=== PATIENT | female | born 1955 | race Caucasian/White ===

== ENCOUNTER → 2018-07-03 11:09 | Outpatient (CLI) | payer OTHER, SELFPAY ==
--- NOTE | 2018-07-03 | DI.MG.S_ITS ---
BILATERAL DIGITAL SCREENING MAMMOGRAM 3D/2D WITH CAD: 07/03/2018 CLINICAL: Routine screening. Family history of breast cancer. Comparison is made to exams dated: 06/22/2017 mammogram, 06/09/2016 mammogram, and 05/31/2016 mammogram - [facility]. The tissue of both breasts is extremely dense, which lowers the sensitivity of mammography. Current study was also evaluated with a Computer Aided Detection (CAD) system. No significant masses, calcifications, or other findings are seen in either breast. There has been no significant interval change. IMPRESSION: NEGATIVE There is no mammographic evidence of malignancy. A 1 year screening mammogram is recommended. This exam was interpreted at Station ID: [id number]. NOTE: For mammograms, a report in lay terms will be sent to the patient. Approximately 15% of breast malignancies will not be visualized mammographically. In the management of a palpable breast mass, a negative mammogram must not discourage biopsy of a clinically suspicious lesion. Electronically Signed By: Michael maynard/cristina:07/03/2018 11:42:25 letter sent: Normal Exam ACR BI-RADS Category 1: Negative 3341F
== END ==
PROVIDERS: Family Provider Physician Assistant; PCP Physician Assistant; Visit Provider Physician Assistant
DX: Z12.31 Encounter for screening mammogram for malignant neoplasm of breast (principal); Z80.3 Family history of malignant neoplasm of breast
CPT/HCPCS: 77063; 77067

== ENCOUNTER → 2018-12-19 14:46 | Outpatient (CLI) | payer OTHER, SELFPAY ==
--- NOTE | 2018-12-19 | DI.MRI.S_ITS ---
PROCEDURE: MR SHOULDER LT WO CON INDICATIONS: INCOMPLETE ROTATOR CUFF TEAR OF LEFT SHOULDER TECHNIQUE: Noncontrast oblique coronal T2 fast spin echo with fat saturation, oblique sagittal T1 spin echo and T2 fast spin echo with fat saturation, axial T1 spin echo and T2 fast spin echo with fat saturation through the shoulder. COMPARISON: None. FINDINGS: Image quality: Excellent. Rotator cuff: Tendinosis and low to moderate grade articular and bursal surface partial-thickness tear involving distal supraspinatus at its insertion the humeral head is seen extending to the musculotendinous junction. There is also distal subscapularis tendinosis and low-grade intrasubstance partial-thickness tear. Sagittal images demonstrate mild supraspinatus muscle atrophy. Bones and bursae: Zyvq-oi-syaimdgc acromioclavicular joint and glenohumeral joint osteoarthritis is seen. No fracture or dislocation.. No pathologic subacromial-subdeltoid or subcoracoid bursal fluid is present. Capsule and soft tissues: In the absence of intra-articular contrast, there is signal abnormality and contour irregularity involving superior anterior labrum at 1 to 2:00 position suggestive of superior anterior labral tear. There is also suggestion of anterior inferior labral tear at 4 to 6:00 position. The glenohumeral ligaments appear intact. The long head of the biceps tendon demonstrates normal location and morphology. The rotator interval appears normal, without fibrosis. The coracohumeral ligament is normal in thickness. IMPRESSION: 1. Suggestion of focal superior anterior labral tear at 1:00 to 2:00 position and anterior inferior labral tear 4 to 6:00 position. 2. Tendinosis and low to moderate grade articular and bursal surface partial-thickness tear involving distal supraspinatus and infraspinatus at their insertions on the greater tuberosity of humeral head extending to musculotendinous junction. Mild supraspinatus muscle atrophy. Distal subscapularis tendinosis. No full-thickness rotator cuff tendon rupture. 3. Mild to moderate acromioclavicular joint and glenohumeral joint osteoarthritis. Dictated by: Padilla Kennedy M.D. on 12/19/2018 at 16:24 Approved by: Padilla Kennedy M.D. on 12/19/2018 at 16:27
== END ==
PROVIDERS: Family Provider Physician Assistant; PCP Physician Assistant; Visit Provider Physician Assistant
DX: M75.112 Incomplete rotator cuff tear or rupture of left shoulder, not specified as traumatic (principal); M19.012 Primary osteoarthritis, left shoulder
CPT/HCPCS: 73221

== ENCOUNTER → 2019-07-09 11:02 | Outpatient (CLI) | payer OTHER, SELFPAY ==
--- NOTE | 2019-07-09 | DI.MG.S_ITS ---
BILATERAL DIGITAL SCREENING MAMMOGRAM 3D/2D WITH CAD: 07/09/2019 CLINICAL: Routine screening. Family history of breast cancer. Comparison is made to exams dated: 07/03/2018 mammogram, 06/22/2017 mammogram, and 05/31/2016 mammogram - [facility]. The tissue of both breasts is extremely dense, which lowers the sensitivity of mammography. Current study was also evaluated with a Computer Aided Detection (CAD) system. No significant masses, calcifications, or other findings are seen in either breast. There has been no significant interval change. IMPRESSION: NEGATIVE There is no mammographic evidence of malignancy. A 1 year screening mammogram is recommended. This exam was interpreted at Station ID: [id number]. NOTE: For mammograms, a report in lay terms will be sent to the patient. Approximately 15% of breast malignancies will not be visualized mammographically. In the management of a palpable breast mass, a negative mammogram must not discourage biopsy of a clinically suspicious lesion. Electronically Signed By: Shira lake/cristina:07/09/2019 12:37:07 letter sent: Normal Exam ACR BI-RADS Category 1: Negative 3341F
== END ==
PROVIDERS: Family Provider Physician Assistant; PCP Physician Assistant; Visit Provider Physician Assistant
DX: Z12.31 Encounter for screening mammogram for malignant neoplasm of breast (principal); Z80.3 Family history of malignant neoplasm of breast
CPT/HCPCS: 77063; 77067

== ENCOUNTER → 2019-08-26 09:09 | Outpatient (CLI) | payer OTHER, SELFPAY ==
--- NOTE | 2019-08-26 | DI.US.S_ITS ---
PROCEDURE: US PELVIC COMPLETE INDICATIONS: DUB TECHNIQUE: Real-time scanning was performed of the pelvic organs, with image documentation. Additional endovaginal scanning was necessary due to incomplete visualization of the adnexal and endometrial structures by transabdominal scanning. COMPARISON: [facility], , PELVIC COMPLETE, 08/20/2009, 12:41. FINDINGS: Transabdominal scanning: Limited scanning through the kidneys shows no hydronephrosis. No pathologic free abdominal or pelvic fluid. Endovaginal scanning: Uterus: Uterus is normal in size at 5.2 x 2.0 x 3.8 cm. The endometrium measures 1.0 mm in combined thickness. Trace endometrial and endocervical fluid. Avascular echogenic focus involving the endocervical canal measuring 3 mm. Nabothian cysts measuring 1.0 cm. Ovaries: Right ovary not visualized. Normal postmenopausal left ovary measuring 1.6 x 1.1 x 0.8 cm. IMPRESSION: 1. Trace endometrial fluid; otherwise the endometrial complex is normal thickness. 2. Trace endocervical fluid and avascular echogenic focus measuring 3 mm which may represent a endocervical polyp; however differential would include other benign and malignant etiologies. Gynecologic consultation is recommended. Dictated by: Yo VALDERRAMA Interpreted: Kayce Sharpe MD on 08/26/2019 at 10:55 Approved by: Kayce Sharpe M.D. on 08/26/2019 at 15:47
== END ==
PROVIDERS: PCP Physician Assistant; Visit Provider Physician Assistant
DX: N93.8 Other specified abnormal uterine and vaginal bleeding (principal); N88.8 Other specified noninflammatory disorders of cervix uteri
CPT/HCPCS: 76830; 76856

== ENCOUNTER → 2019-11-10 11:27 | Outpatient (CLI) | payer OTHER, SELFPAY ==
--- NOTE | 2019-11-10 | DI.RAD.S_ITS ---
PROCEDURE: XR CHEST 2V INDICATIONS: COUGH TECHNIQUE: 2 views of the chest were acquired. COMPARISON: [facility], CHEST 2 VIEW, 10/25/2017, 14:13. [facility], CHEST 1 VIEW, 02/23/2012, 8:45. FINDINGS: Surgical changes and devices: None. Lungs and pleura: Lungs are clear. No pleural effusions or pneumothorax. Mediastinum: Mediastinal contours are normal. Heart size is normal. Bones and chest wall: No suspicious bony abnormalities. Soft tissues appear unremarkable. IMPRESSION: Normal for age, source of current cough symptoms is not seen. Dictated by: Noé Whittington M.D. on 11/10/2019 at 13:09 Approved by: Noé Whittington M.D. on 11/10/2019 at 13:09
== END ==
PROVIDERS: PCP Physician Assistant; Referring Provider Internal Medicine; Visit Provider Internal Medicine
DX: R05 Cough (principal)
CPT/HCPCS: 71046

== ENCOUNTER → 2020-07-13 10:43 | Outpatient (CLI) | payer MEDICARE, SELFPAY ==
--- NOTE | 2020-07-13 | DI.MG.S_ITS ---
BILATERAL DIGITAL SCREENING MAMMOGRAM 3D/2D WITH CAD: 07/13/2020 CLINICAL: Routine screening. Family history of breast cancer. Comparison is made to exams dated: 07/09/2019 mammogram, 07/03/2018 mammogram, 06/22/2017 mammogram, 05/22/2014 mammogram, 05/26/2015 mammogram, and 05/31/2016 mammogram - [facility]. The tissue of both breasts is extremely dense, which lowers the sensitivity of mammography. Current study was also evaluated with a Computer Aided Detection (CAD) system. There are benign calcifications in both breasts. No significant masses, calcifications, or other findings are seen in either breast. There has been no significant interval change. IMPRESSION: BENIGN There is no mammographic evidence of malignancy. A 1 year screening mammogram is recommended. This exam was interpreted at Station ID: [id number]. NOTE: For mammograms, a report in lay terms will be sent to the patient. Approximately 15% of breast malignancies will not be visualized mammographically. In the management of a palpable breast mass, a negative mammogram must not discourage biopsy of a clinically suspicious lesion. Electronically Signed By: Lius montero/cristina:07/13/2020 12:24:06 letter sent: Normal Exam ACR BI-RADS Category 2: Benign Finding(s) 3342F
== END ==
PROVIDERS: PCP Physician Assistant; Referring Provider Physician Assistant; Visit Provider Physician Assistant
DX: Z12.31 Encounter for screening mammogram for malignant neoplasm of breast (principal); Z80.3 Family history of malignant neoplasm of breast
CPT/HCPCS: 77063; 77067

== ENCOUNTER → 2021-07-20 10:58 | Outpatient (CLI) | payer MEDICARE, OTHER, SELFPAY ==
--- NOTE | 2021-07-20 11:03 | DI.MG.S_ITS ---
BILATERAL DIGITAL SCREENING MAMMOGRAM 3D/2D WITH CAD: 07/20/2021 CLINICAL: Routine screening. Family history of breast cancer. Comparison is made to exams dated: 07/13/2020 mammogram, 07/09/2019 mammogram, and 07/03/2018 mammogram - [facility]. The tissue of both breasts is extremely dense, which lowers the sensitivity of mammography. Current study was also evaluated with a Computer Aided Detection (CAD) system. There are benign calcifications in both breasts. No significant masses, calcifications, or other findings are seen in either breast. There has been no significant interval change. IMPRESSION: BENIGN There is no mammographic evidence of malignancy. A 1 year screening mammogram is recommended. This exam was interpreted at Station ID: [id number]. NOTE: For mammograms, a report in lay terms will be sent to the patient. Approximately 15% of breast malignancies will not be visualized mammographically. In the management of a palpable breast mass, a negative mammogram must not discourage biopsy of a clinically suspicious lesion. Electronically Signed By: Michael maynard/cristina:07/20/2021 14:19:43 letter sent: Normal Exam ACR BI-RADS Category 2: Benign Finding(s) 3342F
== END ==
PROVIDERS: PCP Physician Assistant; Referring Provider Physician Assistant; Visit Provider Physician Assistant
DX: Z12.31 Encounter for screening mammogram for malignant neoplasm of breast (principal); Z80.3 Family history of malignant neoplasm of breast
CPT/HCPCS: 77063; 77067

== ENCOUNTER → 2021-08-03 16:38 | Outpatient (CLI) | payer MEDICARE, OTHER, SELFPAY ==
--- NOTE | 2021-08-03 | DI.MRI.S_ITS ---
PROCEDURE: MR HEAD/BRAIN WO/W CON INDICATIONS: new daily persistant headache TECHNIQUE: Noncontrast axial T1 spin echo, axial T2 fast spin echo, sagittal and axial FLAIR, coronal T2 fast spin echo, axial gradient echo, axial diffusion and ADC through the brain. After the administration of contrast, axial and coronal T1 spin echo with fat saturation through the brain. COMPARISON: None. FINDINGS: Image quality: Excellent. CSF spaces: Basal cisterns are patent. No extra-axial fluid collections. Ventricles are normal in size and shape. Brain: No midline shift. No intracranial bleeds or masses. No abnormal intracranial enhancement. There is cerebral volume loss for age. There is periventricular white matter chronic small vessel ischemic change. The brainstem appears normal. Diffusion-weighted images demonstrate no acute ischemic insults. No chronic ischemic insults. Normal intravascular flow voids are present. Skull and face: Calvarial marrow is normal in signal. Orbits appear normal. Sinuses: Sinuses and mastoids appear clear. IMPRESSION: Unremarkable intracranial study, without an imaging explanation found for the patient's presenting history of headache. No masses or abnormal enhancement can be seen. Note is made of age-appropriate brain parenchymal volume loss and chronic small vessel ischemic changes. No findings of acute or subacute infarction can be seen. Dictated by: Arnold Pillai M.D. on 08/03/2021 at 17:34 Approved by: Arnold Pillai M.D. on 08/03/2021 at 17:35
== END ==
PROVIDERS: PCP Physician Assistant; Referring Provider Student in an Organized Health Care Education/Training Program; Visit Provider Student in an Organized Health Care Education/Training Program
DX: G44.52 New daily persistent headache (NDPH) (principal)
CPT/HCPCS: 70553; A9579

== ENCOUNTER → 2022-03-23 08:21 | Outpatient (CLI) | payer MEDICARE, OTHER, SELFPAY ==
--- NOTE | 2022-03-23 | DI.RAD.S_ITS ---
PROCEDURE: XR LUMBAR SPINE 2-3V INDICATIONS: Low back pain, unspecified, Chronic TECHNIQUE: 3 views of the lumbar spine were acquired. COMPARISON: [facility], , L-SPINE 2-3 VIEWS, 08/27/2007, 14:02. FINDINGS: Bones: 5 iti-ojk-bzsdlst vertebrae are present. There is normal bony alignment. No vertebral body compression fractures. No suspicious bony lesions. Soft tissues: Overlying bowel gas pattern is normal. No suspicious soft tissue calcifications. IMPRESSION: No radiographic abnormalities. Dictated by: Shira Felipe M.D. on 03/23/2022 at 9:51 Approved by: Shira Felipe M.D. on 03/23/2022 at 9:53
== END ==
PROVIDERS: PCP Physician Assistant; Referring Provider Physician Assistant; Visit Provider Physician Assistant
DX: M54.50 Low back pain, unspecified (principal); G89.29 Other chronic pain
CPT/HCPCS: 72100

== ENCOUNTER → 2022-04-28 10:41 | Outpatient (CLI) | payer MEDICARE, OTHER, SELFPAY | PROVIDERS: PCP Physician Assistant; Referring Provider Physician Assistant; Visit Provider Physician Assistant | DX: Z13.820 Encounter for screening for osteoporosis (principal); Z78.0 Asymptomatic menopausal state; M81.0 Age-related osteoporosis without current pathological fracture | CPT/HCPCS: 77080 ==

== ENCOUNTER → 2022-06-22 09:41 | Outpatient (CLI) | payer MEDICARE, OTHER, SELFPAY ==
[2022-06-22 11:43] LABS: COVID19 -Nasal RAPID Negative (Negative)
== END ==
PROVIDERS: PCP Physician Assistant; Visit Provider Surgery
DX: Z20.822 Contact with and (suspected) exposure to COVID-19 (principal); Z01.812 Encounter for preprocedural laboratory examination
CPT/HCPCS: 87635; C9803

== ENCOUNTER 2022-06-23 10:40 | Day surgery (SDC) | payer MEDICARE, OTHER, SELFPAY ==
[2022-06-23] VITALS (7 sets, daily range): BP systolic 100–158; BP diastolic 54–93; PULSE 54–99; RESP 12–22; TEMP 35.8–36.8; O2SAT 98–100; BMI 43.1
--- NOTE | 2022-06-23 | PATH_ITS ---
[facility] Accession Number: [id number] . 01 Material submitted: . rectum - RECTAL POLYP . 01 Diagnosis: Rectal Polyp, Biopsy: Hyperplastic polyp. [facility] 06/28/2022 1027 Local . 01 Electronically signed: . Timo Perry MD, PhD, Pathologist NPI- [id number] . 01 Gross description: . RECTAL POLYP: Received in formalin is 1 fragment(s) of barnes, soft tissue measuring 0.9 x 0.6 x 0.2 cm submitted entirely in 1 cassette(s) /[facility] 06/26/2022 2239 Local . 01 Pathologist provided ICD-10: K62.1 . 01 CPT . 504233 Specimen Comment: A courtesy copy of this report has been sent to [facility] Pathology Performed at: 01 [facility] [address] [place] [address] [id number] MD Michael Olguin MD Phone: [phone]
[2022-06-23] MEDS: LACTATED RINGERS 1,000 ML 42 ML IV (11:05)
--- NOTE | 2022-06-23 11:29 | PM.HP.1 ---
History of Present Illness History of Present Illness Date Patient Seen: 06/23/22 Chief complaint: COLONOSCOPY Narrative: Ms. Morales presents for screening colonoscopy. Had a previous colonoscopy about 5 years ago she believes that she had some polyps with that. She denies any symptoms of bleeding or changes in bowel habits. She has no family history of colon cancer. She is allergic to penicillin and clindamycin these cause her neck to swell. She has hemorrhoids. But is otherwise healthy her bowel prep today went well. Patient History Family & Social History Social History: household members none Tobacco & Substance use: Smoking Status Never smoker alcohol intake current alcohol intake frequency a few times a week Substance Use Type does not use Meds Home Medications and Allergies Home Medications Medication Instructions Recorded Confirmed Type No Known Home Medications 06/23/22 06/23/22 History Allergies Allergy/AdvReac Type Severity Reaction Status Date / Time beclomethasone [From QVAR] Allergy Intermediate HEARTRATE Verified 06/23/22 10:50 INCREASED clindamycin [CLINDAMYCIN] Allergy Mild THROAT Verified 06/23/22 10:50 SWELLED Penicillins [PENICILLINS] Allergy Unknown Verified 06/23/22 10:50 Exam Vital Signs (past 8 hours): - 06/23/22 10:55 Temperature 98.3 F Pulse Rate 99 H Respiratory Rate 22 Blood Pressure 158/93 H Pulse Oximetry 98 Oxygen Delivery Method Room Air Oxygen Flow Rate 0 Oxygen Delivery Method Room Air Oxygen Flow Rate 0 Const General: cooperative, healthy appearing and comfortable Nutritional Appearance: thin HENMT Head: normal to inspection Neck Neck: normal visual inspection Resp Effort & Inspection: normal respiratory effort and able to speak in complete sentences Cardio Rate: regular rate GI Inspection: normal to inspection Extrem General: normal to inspection Assessment & Plan Assessment and plan (1) Encounter for screening colonoscopy: Status: Acute Plan I discussed risks benefits and alternatives to screening colonoscopy including but not limited to risks from conscious sedation as well as perforation and damage to the colon requiring hospitalization or further surgery in rare cases. She understand the risks and benefits and wishes to proceed. Time Spent With Patient Critical Care time: I spent a total of [] minutes of critical care time on this patient's care today; this time is exclusive of procedural time.
[2022-06-23] MEDS: fentaNYL 100 MCG/2 ML INJ 200 MCG IV (13:32)
[2022-06-23] MEDS: MIDAZOLAM 5 MG/5 ML VIAL 8 MG IV (13:32)
--- NOTE | 2022-06-23 13:56 | PM.OP.COLON ---
Operative Date/Time/Diagnoses Date of procedure: 06/23/22 Pre-op diagnosis: Colon cancer screening Post-op diagnosis: same Procedure & Clinicians Study performed: Colonoscopy Same procedure as scheduled: Yes Indications: Screening Surgeon: Seda Goldberg Procedure Notes Procedure in detail: Patient was taken to the endoscopy suite and placed in a left lateral decubitus position a time-out was performed. Conscious sedation was induced. Patient received a total of 8 mg of Versed and 200 mcg of fentanyl. Digital rectal exam was performed. External hemorrhoids were seen. The colonoscope was then introduced into the anal canal and advanced. The colonoscope was eventually advanced to the cecum and a photograph was taken of the appendiceal orifice. I also saw the ileocecal valve well. However this was a difficult colonoscopy with a lot of very tight turns. The patient was somewhat uncomfortable during the turns. This discomfort was alleviated medication overall the patient did well and went in good condition to the postoperative care unit. As we were withdrawing the saw a small less 1 cm rectal polyp which was snared and suctioned and sent for pathology. Scope withdrawal time: 20 minutes Sedation minutes: 56 Findings: divertiulosis, internal hemorrhoids and polyp(s) Post-procedure Plan for aftercare: Follow-up colonoscopy in 5-10 years depending on pathology.
== END 2022-06-23 23:00 | disposition home or self-care (01) ==
PROVIDERS: PCP Physician Assistant; Referring Provider Surgery; Visit Provider Surgery
PROC: 0DJD8ZZ Inspection of Lower Intestinal Tract, Via Natural or Artificial Opening Endoscopic (ICD-10-PCS; CPT 45378; principal; 2022-06-23 11:45)
DX: Z12.11 Encounter for screening for malignant neoplasm of colon (principal); K64.8 Other hemorrhoids; K57.30 Diverticulosis of large intestine without perforation or abscess without bleeding; K62.1 Rectal polyp
CPT/HCPCS: 45385; 99152; 99153; J2250; J3010

== ENCOUNTER → 2022-07-25 07:59 | Outpatient (CLI) | payer MEDICARE, OTHER, SELFPAY ==
--- NOTE | 2022-07-25 | DI.MG.S_ITS ---
BILATERAL DIGITAL SCREENING MAMMOGRAM 3D/2D WITH CAD: 07/25/2022 CLINICAL: Routine screening. Family history of breast cancer. Comparison is made to exams dated: 07/20/2021 mammogram, 07/13/2020 mammogram, and 07/09/2019 mammogram - [facility]. Both breasts are extremely dense, which lowers the sensitivity of mammography (category d />75% glandular tissue). Current study was also evaluated with a Computer Aided Detection (CAD) system. There are benign calcifications in both breasts. No significant masses, calcifications, or other findings are seen in either breast. There has been no significant interval change. IMPRESSION: BENIGN There is no mammographic evidence of malignancy. A 1 year screening mammogram is recommended. Based on Tyrer-Cuzick model (a risk assessment model), the patient's lifetime risk is 27.4% and her 10 year risk is 15.3%. If a patient has an elevated risk, a more comprehensive evaluation should be considered and/or a referral to a genetic counselor. The [employer], [employer], and NCCN Guidelines advise the consideration of Breast MRI as an adjunct to screening mammography in patients whose Lifetime risk to develop breast cancer is 20% or higher. This exam was interpreted at Station ID: [id number]. NOTE: For mammograms, a report in lay terms will be sent to the patient. Approximately 15% of breast malignancies will not be visualized mammographically. In the management of a palpable breast mass, a negative mammogram must not discourage biopsy of a clinically suspicious lesion. Electronically Signed By: Fahad ford/cristina:07/25/2022 13:01:19 letter sent: Normal Exam ACR BI-RADS Category 2: Benign Finding(s) 3342F
== END ==
PROVIDERS: PCP Physician Assistant; Referring Provider Physician Assistant; Visit Provider Physician Assistant
DX: Z12.31 Encounter for screening mammogram for malignant neoplasm of breast (principal); Z80.3 Family history of malignant neoplasm of breast
CPT/HCPCS: 77063; 77067

== ENCOUNTER → 2022-08-18 09:19 | Outpatient (CLI) | payer MEDICARE, OTHER, SELFPAY ==
--- NOTE | 2022-08-18 | DI.NM.S_ITS ---
PROCEDURE: NM GARY PERF SPECT REST & STR Rest and exercise myocardial perfusion SPECT with gated imaging and ejection fraction RADIOPHARMACEUTICAL: 12.3 mCi Tc-99m sestamibi IV at rest and 26.0 mCi Tc-99m sestamibi IV at peak exercise. A 1-hzy-ugqwtjbz was performed. INDICATIONS: Shortness of breath Dizziness and giddiness TECHNIQUE: Radiopharmaceutical was injected at peak stress test, and also at rest. SPECT images were obtained. SPECT myocardial perfusion images were displayed in short axis, horizontal long axis, and vertical long axis views. Gated images were reviewed using [employer] software. COMPARISON: None. CARDIAC STRESS: A standard Manior treadmill exercise tolerance test was performed by the patient under the supervision of an attending staff. The patient exercised for 4 minutes and 31 seconds; 7.0 METS; functional aerobic impairment (SANCHEZ) is +25% %. Hemodynamic data: There is normal blood pressure and heart rate response to exercise stress. Patient achieved 99% of maximum predicted heart rate at peak exercise. Peak blood pressure 167/78. Symptoms: Patient denied chest pain during exercise. EKG: Rest ECG sinus rhythm. Stress ECG sinus tachycardia, no diagnostic EKG changes of ischemia, frequent PVCs, 1 episode of 6 beat NSVT. FINDINGS: Raw data: There is good myocardial labeling by radiotracer. No significant motion artifacts. Fmud-hu-hgzoi ratio is 0.21 (normal is less than 0.38 for sestamibi tracer, and less than 0.50 for thallium tracer). Left ventricle function: Gated images demonstrate normal left ventricle wall thickening. No segmental wall motion abnormality. No transient ischemic dilation; TID is 0.94 (normal less than 1.3). The left ventricle resting end-diastolic volume is 78 mL. Left ventricle stress ejection fraction is >75%; normal values are above 45%. Myocardial perfusion: There is normal distribution of activity in the left and right ventricular myocardium. No fixed or reversible perfusion defects. IMPRESSION: Low risk perfusion study. No evidence of exercise-induced ischemia or scar on SPECT imaging. Stress ECG did not show changes diagnostic of ischemia however there were frequent PVCs and 1 episode NSVT noted. Normal hemodynamic response to exercise. Reduced exercise capacity. Dictated by: Sherry Kearns D.O. on 08/18/2022 at 16:57 Approved by: Sherry Kearns D.O. on 08/18/2022 at 17:01
[2022-08-18 09:57] LABS: COVID19 -Nasal RAPID Negative (Negative)
== END ==
PROVIDERS: PCP Physician Assistant; Referring Provider Physician Assistant; Visit Provider Physician Assistant
DX: R42 Dizziness and giddiness (principal); R11.0 Nausea; R06.02 Shortness of breath; Z20.822 Contact with and (suspected) exposure to COVID-19
CPT/HCPCS: 78452; 87635; 93017; A9502

== ENCOUNTER → 2022-10-04 07:59 | Outpatient (CLI) | payer MEDICARE, OTHER, SELFPAY ==
--- NOTE | 2022-10-04 | DI.ECHO.S_ITS ---
[facility]---------[facility] +---------+ : : [address] : : : : [id number] : : : : Phone: [phone] Echocardiogram Report + + :Name: DANIELLE JANSEN Study Date: 10/04/2022 Height: 67.5 in: :[facility] ReadingLocation: Weight: 128 lb : : Gender: Female BSA: 1.7 m2 : :: 1955 Age: 67 yrs BP: 123/75 mmHg: :Reason For Study: VENTRICULAR PREMATURE DEPOLARIZATION : :Ordering Physician: BENNY, : :JDUY Performed By: Rani Preston : :Referring: JUDY ZAPATA : + + Interpretation Summary Normal sinus rhythm. Normal LV size, wall thickness, wall motion and LV systolic function. EF is 55-60%. Normal chamber sizes. No valvular abnormalities. No prior study available for comparison. Procedure: A two-dimensional transthoracic echocardiogram with color flow and Doppler was performed. The study quality was technically adequate. There is no prior echocardiogram noted for this patient. The patient was in sinus rhythm with heart rates between 68-81 bpm during the exam. Left Ventricle: The left ventricle is normal in size and wall thickness. The ejection fraction is estimated to be 55-60%. Right Ventricle: The right ventricle is normal in size and function. Atria: The left atrial size is normal. Right atrial size is normal. There is no Doppler evidence for an interatrial shunt. Mitral Valve: The mitral valve is normal in structure and function. There is mild mitral regurgitation. Aortic Valve: The aortic valve is trileaflet. The aortic valve opens well. There is no aortic valve stenosis. No aortic regurgitation is present. Tricuspid Valve: The tricuspid valve is normal in structure and function. There is mild tricuspid regurgitation. Pulmonic Valve: The pulmonic valve leaflets are thin and pliable; valve motion is normal. There is no pulmonic valvular regurgitation. Great Vessels: The aortic root is normal size. The ascending aorta could not be visualized. The IVC is of normal diameter and collapses greater than 50% with a sniff. This suggests a low right atrial pressure of 3 mm Hg. Pericardium/ Pleura There is no pericardial effusion. There is no pleural effusion. MMode/2D Measurements & Calculations LVIDd: 4.3 cm LVOT diam: 1.9 cm LVIDs: 2.9 cm Ao root diam: 2.9 cm FS: 32.9 % Ao Arch Diam (Prox Trans): 2.5 cm IVSd: 0.69 cm LVPWd: 0.71 cm LV hager. diameter/BSA (cm/m^2): 2.6 LV sys. diameter/BSA (cm/m^2): 1.7 LA A2 area: 17.6 cm2 RA long axis: 4.4 cm LA A4 area: 14.8 cm2 RA area: 12.4 cm2 LA length (vol): 4.3 cm RA vol: 29.7 ml LA vol: 52.0 ml RA : 17.6 ml/m2 LA vol index: 30.9 ml/m2 IVC diam: 1.2 cm RVD1 (basal): 3.1 cm RVD2 (mid): 2.9 cm TAPSE: 2.3 cm Doppler Measurements & Calculations Ao V2 max: 132.6 cm/sec LVOT Max Alphonso: 113.5 cm/sec Ao V2 mean: 91.0 cm/sec LV V1 max P.2 mmHg Ao max P.0 mmHg LV V1 VTI: 23.5 cm Ao mean P.7 mmHg ZEHRA(I,D): 2.6 cm2 Ao V2 VTI: 25.6 cm ZEHRA(V,D): 2.4 cm2 sev ratio: 0.92 ZEHRA indexed to BSA (cm^2/m^2): 1.5 MV E max alphonso: 74.2 cm/sec PA V2 max: 78.7 cm/sec MV A max alphonso: 71.5 cm/sec PA V2 mean: 58.6 cm/sec MV E/A: 1.0 PA mean P.5 mmHg Med Peak E' Alphonso: 8.7 cm/sec PA pr(Accel): 17.3 mmHg E/E' med: 8.5 Lat Peak E' Alphonso: 10.2 cm/sec E/E' lat: 7.3 E/e' average: 7.9 MV dec time: 0.17 sec SV(LVOT): 65.4 ml Electronically signed by: Lynda Jones M.D. on Reading Physician:10/04/2022 11:11 PM
== END ==
PROVIDERS: PCP Physician Assistant; Referring Provider Physician Assistant; Visit Provider Physician Assistant
DX: I49.3 Ventricular premature depolarization (principal); R42 Dizziness and giddiness; R06.02 Shortness of breath; I08.1 Rheumatic disorders of both mitral and tricuspid valves
CPT/HCPCS: 93306

== ENCOUNTER → 2023-07-26 17:11 | Outpatient (CLI) | payer MEDICARE, OTHER, SELFPAY ==
--- NOTE | 2023-07-26 | DI.MG.S_ITS ---
BILATERAL DIGITAL SCREENING MAMMOGRAM 3D/2D WITH CAD: 07/26/2023 CLINICAL: Routine screening. Family history of breast cancer. Comparison is made to exams dated: 07/25/2022 mammogram, 07/20/2021 mammogram, and 07/13/2020 mammogram - [facility]. Both breasts are extremely dense, which lowers the sensitivity of mammography (category d />75% glandular tissue). Current study was also evaluated with a Computer Aided Detection (CAD) system. There are benign calcifications in both breasts. No significant masses, calcifications, or other findings are seen in either breast. There has been no significant interval change. IMPRESSION: BENIGN There is no mammographic evidence of malignancy. A 1 year screening mammogram is recommended. Consider supplemental MRI screening. Based on Tyrer-Cuzick model (a risk assessment model), the patient's lifetime risk is 26.2% and her 10 year risk is 15.2%. If a patient has an elevated risk, a more comprehensive evaluation should be considered and/or a referral to a genetic counselor. The [place] [employer], [employer], and NCCN Guidelines advise the consideration of Breast MRI as an adjunct to screening mammography in patients whose Lifetime risk to develop breast cancer is 20% or higher. This exam was interpreted at Station ID: [id number]. NOTE: For mammograms, a report in lay terms will be sent to the patient. Approximately 15% of breast malignancies will not be visualized mammographically. In the management of a palpable breast mass, a negative mammogram must not discourage biopsy of a clinically suspicious lesion. Electronically Signed By: Fritz Jasso M.D. lc/:07/27/2023 08:22:05 letter sent: Normal Exam ACR BI-RADS Category 2: Benign Finding(s) 3342F
== END ==
PROVIDERS: PCP Physician Assistant; Referring Provider Physician Assistant; Visit Provider Physician Assistant
DX: Z12.31 Encounter for screening mammogram for malignant neoplasm of breast (principal); Z80.3 Family history of malignant neoplasm of breast
CPT/HCPCS: 77063; 77067

== ENCOUNTER → 2023-10-16 10:39 | Outpatient (CLI) | payer MEDICARE, OTHER, SELFPAY ==
--- NOTE | 2023-10-16 10:41 | DI.RAD.S_ITS ---
PROCEDURE: XR CHEST 2V INDICATIONS: COUGH TECHNIQUE: 2 views of the chest were acquired. COMPARISON: [facility], , XR CHEST 2V, 11/10/2019, 11:56. [facility], , CHEST 2 VIEW, 10/25/2017, 14:13. FINDINGS: Surgical changes and devices: None. Lungs and pleura: Lungs are clear. No pleural effusions or pneumothorax. Mediastinum: Mediastinal contours are normal. Heart size is normal. Bones and chest wall: No suspicious bony abnormalities. Soft tissues appear unremarkable. IMPRESSION: No acute cardiopulmonary abnormality. Dictated by: Bayron Artis M.D. on 10/16/2023 at 13:18 Approved by: Bayron Artis M.D. on 10/16/2023 at 13:19
== END ==
LOC: RAD 10:40
PROVIDERS: PCP Physician Assistant; Referring Provider Physician Assistant; Visit Provider Physician Assistant
DX: R05.9 Cough, unspecified (principal)
CPT/HCPCS: 71046

== ENCOUNTER → 2024-05-20 10:14 | Outpatient (CLI) | payer MEDICARE, OTHER, SELFPAY ==
--- NOTE | 2024-05-20 | DI.RAD.S_ITS ---
PROCEDURE: XR DEXA AXIAL SKELETON INDICATIONS: osteoporosis COMPARISON: [facility], CR, XR DEXA AXIAL SKELETON, 04/28/2022, 11:04. [facility], CR, DEXA AXIAL SKELETON, 06/14/2015, 10:29. FINDINGS: Lumbar Spine: Bone mineral density 0.96 g/cm2, T score -0.8, previously -0.9. Left Hip: Bone mineral density 0.74 g/cm2, T score -1.7, previously -1.7. Left Femoral Neck: Bone mineral density is 0.55 g/cm2, T score -2.7, previously -2.7. Right Hip: Bone mineral density 0.75 g/cm2, T score -1.6, previously -1.7. Right Femoral Neck: Bone mineral density 0.56 g/cm2, T score -2.6, previously -2.3. Fracture Risk Calculation (when applicable): 10-year fracture risk of a major osteoporotic fracture 21 percent and of a hip fracture 6.7 percent. (T score greater or equal to -1.0 to: NORMAL) (T score from -1.1 to -2.4: OSTEOPENIA) (T score less than or equal to -2.5: OSTEOPOROSIS) IMPRESSION: Osteoporosis, with T-scores above similar to prior. T-score in the right femoral neck is slightly decreased. Follow-up guidelines as follows: Osteoporosis: Consider a repeat DEXA and Vertebral Fracture Assessment (VFA) exam in 2 years or sooner if medically necessary, to reassess this patient's status. Osteopenia: Consider a repeat DEXA in 2-3 years to reassess this patient's status, or if there is a new clinical indication. Normal: Consider a repeat DEXA in 5 years or sooner, or if there is a new clinical indication. All treatment decisions require clinical judgment and consideration of individual patient factors, including patient preferences, comorbidities, previous drug use, risk factors not captured in the FRAX model (e.g., frailty, falls, vitamin D deficiency, increased bone turnover, interval significant decline in bone density ) and possible under- or over-estimation of fracture risk by FRAX. In addition, the NOF Guide recommends that FDA-approved medical therapies be considered in postmenopausal women and men age >= 50 years with a: * Hip or vertebral (clinical or morphometric) fracture * T-score of <=-2.5 at the spine or hip * Ten-year fracture probability by FRAX of >= 3% for hip fracture or >=20% for major osteoporotic fracture. People with diagnosed cases of osteoporosis or at high risk for fracture should have regular bone mineral density tests. For patients eligible for Medicare, routine testing is allowed once every 2 years. The testing frequency can be increased to one year for patients who have rapidly progressing disease, those who are receiving or discontinuing medical therapy to restore bone mass, or have additional risk factors. Dictated by: Fritz Jasso M.D. on 05/20/2024 at 15:36 Approved by: Fritz Jasso M.D. on 05/20/2024 at 15:38
--- NOTE | 2024-05-20 | DI.US.S_ITS ---
PROCEDURE: US THYROID INDICATIONS: NONTOXIC GOITER TECHNIQUE: Real-time scanning was performed of the thyroid gland, with image documentation. COMPARISON: None. FINDINGS: Thyroid: Right lobe measures 4.4 x 1.6 x 1.7 cm. Left lobe measures 4.0 x 1.6 x 1.6 cm. Isthmus is 0.2 cm thick. Echotexture is homogeneous. No solid or cystic nodules identified. IMPRESSION: No solid or cystic thyroid nodules. Dictated by: Bryan Capellan M.D. on 05/20/2024 at 17:14 Approved by: Bryan Capellan M.D. on 05/20/2024 at 17:15
--- NOTE | 2024-05-20 | DI.MRI.S_ITS ---
BREAST MRI OF BOTH BREASTS: 05/20/2024 CLINICAL: High risk screening. PROCEDURE: MR BREAST BI WO/W CON INDICATIONS: Mammographic extreme density, bilateral breasts TECHNIQUE: The patient was placed prone in a dedicated breast imaging coil. Precontrast axial STIR and 3D FLASH without fat saturation sequences were obtained. Both before and after bolus injection of contrast, sequential 1-minute axial 3D FLASH with fat saturation sequences for 3 time points, with subtraction images and maximum intensity projections (MIP's) generated. Delayed sagittal FLASH images with fat saturation were also obtained. CONTRAST: 20 cc Prohance. Computer-aided detection, including computer algorithm analysis of MRI image data for lesion detection and characterization, pharmacokinetic analysis, with further physician review for interpretation, was performed. COMPARISON: [facility], US, BREAST UNILATERAL LIMITED, 06/09/2016, 9:54. CR, XR CHEST 2V, 10/16/2023, 11:00. [facility], MG, MM SCREENING MAMMO BI, 07/26/2023, 17:19. [facility], , MM SCREENING MAMMO BI, 07/25/2022, 8:29. FINDINGS: Image quality: Excellent. There is mild background parenchymal enhancement. Right breast: No mass or suspicious enhancement. Left breast: 1:00 o'clock far posterior depth mass measuring 1.6 x 1.5 cm, (4). Mild patchy enhancement. T2 hypointense. Kinetic analysis demonstrates slow initial phase and persistent delayed phase. This is unchanged on mammogram since at least 2019 and was seen on US in 2015. 12:00 o'clock middle depth mass measuring 1 x 0.8 cm, (16/59). Mild enhancement. T2 hypointense. Kinetic analysis demonstrates slow initial phase and persistent delayed phase. This is located 0.5 cm from the larger mass and is less defined. Not appreciated on prior mammogram tomosynthesis. Miscellaneous: Patchy opacity in the right middle lobe, (15/50). No enlarged lymph nodes. IMPRESSION: INCOMPLETE: NEEDS ADDITIONAL IMAGING EVALUATION 1. Right breast: No mass or suspicious enhancement. 2. Left breast: 1:00 o'clock posterior depth benign mass measuring 1.6 cm with imaging features of a benign fibroadenoma. Left breast: 12:00 o'clock middle depth suspected 2nd mass measuring 1 cm with imaging features of a benign fibroadenoma. -Recommend targeted ultrasound for additional evaluation. 3. Lymph nodes: No enlarged lymph nodes. 4. Patchy opacity in the right middle lobe. -This could be further evaluated with CT chest if clinically indicated. BIRADS 0. Recommend left breast ultrasound. COMMENT: The imaging literature indicates that a negative contrast breast MRI examination has a high sensitivity and a moderate specificity for detecting and excluding invasive carcinomas to a detection threshold of 3-5 mm; nonetheless, appropriate clinical and mammographic follow-up are recommended. MRI is not sensitive for detecting DCIS (ductal carcinoma in situ) and may not detect large invasive neoplasms that show only minimal enhancement such as mucinous carcinoma. If there are suspicious calcifications or clinically worrisome palpable masses, then biopsy should still be considered. Invasive neoplasms can be hidden by co-existent and benign enhancement caused by mastitis, hormone therapy effects, radiation therapy, , and recent biopsy or surgery. False positive examinations can occur in a number of circumstances, including breasts that have recently been subject to invasive procedures and those that contain atypical ductal hyperplasia, hormonally stimulated glandular tissue, fat necrosis, or radial scars. Dictated by: Bayron Artis M.D. on 05/20/2024 at 14:23 This exam was interpreted at Station ID: [id number]. Electronically Signed By: Bayron Artis M.D. slc/:05/20/2024 15:02:42 letter sent: Additional Imaging Needed ACR BI-RADS Category 0: Incomplete [id number]
== END ==
LOC: RAD 10:16
PROVIDERS: PCP Physician Assistant; Referring Provider Physician Assistant; Visit Provider Physician Assistant
DX: M81.0 Age-related osteoporosis without current pathological fracture (principal); R92.343 Mammographic extreme density, bilateral breasts; Z78.0 Asymptomatic menopausal state; E04.9 Nontoxic goiter, unspecified; N63.21 Unspecified lump in the left breast, upper outer quadrant
CPT/HCPCS: 76536; 77049; 77080; A9579

== ENCOUNTER → 2024-06-09 07:46 | Outpatient (CLI) | payer MEDICARE, OTHER, SELFPAY ==
--- NOTE | 2024-06-09 07:47 | DI.CT.S_ITS ---
PROCEDURE: CT CHEST WO CON INDICATIONS: OPACITY RT MIDDLE LOBE/F/U BREAST MRI TECHNIQUE: Noncontrast 5 mm thick sections acquired from the pulmonary apices to the posterior costophrenic angles. 1 mm lung window, 5 mm thick coronal and sagittal and 7 mm axial MIP reformats were then acquired. For radiation dose reduction, the following was used: automated exposure control, adjustment of mA and/or kV according to patient size. COMPARISON: [facility], MR, MR BREAST BI WO/W CON, 05/20/2024, 11:11. FINDINGS: Image quality: Diagnostic. Lower Neck: No enlarged lymph nodes. Thyroid: No thyroid nodules which require sonographic follow up, per consensus guidelines. Axillae: No enlarged lymph nodes. Chest Wall: Unremarkable. Bones: Unremarkable. Lungs and Pleura: In this patient with this given history, scrutiny is given to the right middle lobe at the site of the breast MRI abnormality. At this site, there are mild areas of patchy fibrotic appearing opacities seen, as on series 3 image 212 and on series 3 image 252. The lungs otherwise appear clear. No suspicious pulmonary nodules are seen. No pneumothorax or pleural effusions are seen. Heart: Heart size is normal. No pericardial effusion. Thoracic Vessels: The aorta and pulmonary arteries demonstrate normal size. Mediastinum and Amy: No enlarged lymph nodes. Esophagus: No wall thickening. No hiatal hernia. Upper Abdomen: Visualized upper abdomen solid organs and bowel loops appear normal. IMPRESSION: Poorly defined fibrotic appearing opacities can be seen within the right middle lobe, corresponding to the rest MRI abnormality. The appearance is most consistent with fibrotic/scarring change. Infection is possible. Neoplasm (including metastatic disease) is considered to be unlikely given the imaging appearance. Dictated by: Arnold Pillai M.D. on 06/12/2024 at 16:05 Approved by: Arnold Pillai M.D. on 06/12/2024 at 16:08
--- NOTE | 2024-06-09 07:47 | DI.US.S_ITS ---
LIMITED ULTRASOUND OF LEFT BREAST AND AXILLA: 06/09/2024 CLINICAL: Patient returns for additional imaging over a suspected mass MRI in the left breast. Comparison is made to exams dated: 05/20/2024 breast MRI, 07/26/2023 mammogram, 07/25/2022 mammogram, 07/20/2021 mammogram, 07/13/2020 mammogram, and 07/09/2019 mammogram - [facility]. Color flow and real-time ultrasound of the left breast 1 o'clock, 11 o'clock, and axilla regions were performed. Deras scale images of the real-time examination were reviewed. There is a 1 cm x 0.4 cm x 0.7 cm oval mass with a circumscribed margin in the left breast at 11 o'clock, 5.5 cm from the nipple. This oval mass is hypoechoic. This correlates with breast MRI mass (described at 12 o'clock position on MRI the report). At 1 o'clock., 4 cm from the nipple there is an oval hypoechoic mass with circumscribed margins measuring up to 2.1 cm. This finding corresponds to the mass seen at the 1 o'clock position on MRI and mammographically stable since at least 2019 consistent with a benign etiology. IMPRESSION: PROBABLY BENIGN Left breast 1.0 cm oval circumscribed mass at 11 o'clock position corresponding to MRI mass. 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 Recommend follow-up ultrasound in 6 months to demonstrate stability. Findings and recommendations were conveyed to the patient during today's evaluation. This exam was interpreted at Station ID: [id number]. Electronically Signed By: Berta Lucio M.D., Ph.D. eb/:06/10/2024 16:58:09 letter sent: Followup Recommended ACR BI-RADS Category 3: Probably Benign
== END ==
PROVIDERS: PCP Physician Assistant; Referring Provider Physician Assistant; Visit Provider Physician Assistant
DX: R91.8 Other nonspecific abnormal finding of lung field (principal); N63.22 Unspecified lump in the left breast, upper inner quadrant; N63.21 Unspecified lump in the left breast, upper outer quadrant
CPT/HCPCS: 71250; 76642

== ENCOUNTER → 2024-07-29 09:30 | Outpatient (CLI) | payer MEDICARE, OTHER, SELFPAY ==
--- NOTE | 2024-07-29 09:31 | DI.MG.S_ITS ---
BILATERAL DIGITAL DIAGNOSTIC MAMMOGRAM 3D/2D: 07/29/2024 CLINICAL: Recommend mammo from recent Ultrasound. Family history breast cancer. Comparison is made to exams dated: 07/26/2023 mammogram, 07/25/2022 mammogram, and 07/20/2021 mammogram - [facility]. The breasts are extremely dense, which lowers the sensitivity of mammography (category d />75% glandular tissue). There are benign calcifications in both breasts. Stable benign asymmetry 1:00 left breast. No new mammographic finding to correspond to the 1.0 cm asymmetry seen on recent US in the 11:00 left breast. No significant masses, calcifications, or other findings are seen in either breast. IMPRESSION: BENIGN Bilateral mammograms are stable. There is no mammographic evidence of malignancy. A 1 year screening mammogram is recommended. Future imaging is recommended as follows: previously recommended 12/07/2024 follow-up left ultrasound. Findings and recommendations were conveyed to the patient at time of exam. Based on Tyrer-Cuzick model (a risk assessment model), the patient's lifetime risk is 24.9% and her 10 year risk is 15.3%. If a patient has an elevated risk, a more comprehensive evaluation should be considered and/or a referral to a genetic counselor. The [place] [employer], [employer] [place] [employer], and NCCN Guidelines advise the consideration of Breast MRI as an adjunct to screening mammography in patients whose Lifetime risk to develop breast cancer is 20% or higher. This exam was interpreted at Station ID: [id number]. NOTE: For mammograms, a report in lay terms will be sent to the patient. Approximately 15% of breast malignancies will not be visualized mammographically. In the management of a palpable breast mass, a negative mammogram must not discourage biopsy of a clinically suspicious lesion. Electronically Signed By: Carly bello/:07/29/2024 10:16:00 Entry: - 07/30/2024 10:54:33 letter sent: Followup Recommended ACR BI-RADS Category 2: Benign
== END ==
PROVIDERS: PCP Physician Assistant; Referring Provider Physician Assistant; Visit Provider Physician Assistant
DX: R92.8 Other abnormal and inconclusive findings on diagnostic imaging of breast (principal); N63.25 Unspecified lump in the left breast, overlapping quadrants; R92.343 Mammographic extreme density, bilateral breasts
CPT/HCPCS: 77066; G0279

== ENCOUNTER → 2024-10-11 17:28 | Outpatient (CLI) | payer MEDICARE, OTHER, SELFPAY | PROVIDERS: PCP Physician Assistant; Visit Provider Physician Assistant Medical | DX: R30.0 Dysuria (principal) | CPT/HCPCS: 87077; 87086; 87186 ==

== ENCOUNTER → 2024-12-01 07:03 | Outpatient (CLI) | payer MEDICARE, OTHER, SELFPAY ==
--- NOTE | 2024-12-01 07:05 | DI.US.S_ITS ---
PROCEDURE: US PELVIC COMPLETE INDICATIONS: POSTMENOPAUSAL BLEEDING TECHNIQUE: Real-time scanning was performed of the pelvic organs, with image documentation. Additional endovaginal scanning was necessary due to incomplete visualization of the adnexal and endometrial structures by transabdominal scanning. COMPARISON: [facility], , US PELVIC COMPLETE, 08/26/2019, 9:40. FINDINGS: Uterus: Uterus is anteverted and normal in size at 3.6 x 4.0 x 1.9 cm. The myometrium is homogeneous. The endometrium measures 2 mm in combined thickness. Persistent fluid and debris within the endometrial cavity. No abnormal vascularity. Redemonstration of oval, echogenic focus within the cervix near the endocervical canal now measuring 0.4 x 0.6 x 0.4 cm, previously 0.3 x 0.2 x 0.3 cm. Ovaries: The right ovary measures 1.7 x 1.3 x 1.2 cm, with a calculated ovarian volume of 1.4 cc. The left ovary measures 1.6 x 0.9 x 1.0 cm, with a calculated ovarian volume of 0.8 cc. The ovaries have a normal sonographic appearance. Less than 12 follicles can be seen in each ovary. No adnexal masses are seen. Other: No pathologic free abdominal or pelvic fluid. IMPRESSION: 1. Persistent fluid and debris within the endometrial canal with persistent echogenic focus in the cervix near the endocervical canal measuring 0.4 x 0.6 x 0.4 cm versus 0.3 x 0.2 x 0.3 cm previously. No associated vascularity. Given history of abnormal uterine bleeding and interval enlargement of this echogenic focus, recommend further evaluation with gynecology consultation and possible endometrial sampling/biopsy. We strive to produce accurate, complete, and clear reports of imaging services. To assist us in improving patient care, this report was composed using standard report templates and voice recognition software. Therefore, it may contain abnormal punctuation, insertions and/or omissions. Occasional wrong-word or sound-alike substitutions may occur. Though we review the report and make efforts to correct it, we do recommend that the report be read carefully in proper context to recognize any text inaccuracies. Dictated by: Luis Novak M.D. on 12/01/2024 at 11:01 Approved by: Luis Novak M.D. on 12/01/2024 at 11:08
== END ==
PROVIDERS: PCP Physician Assistant; Referring Provider Physician Assistant; Visit Provider Physician Assistant
DX: R93.5 Abnormal findings on diagnostic imaging of other abdominal regions, including retroperitoneum (principal); N95.0 Postmenopausal bleeding; N93.9 Abnormal uterine and vaginal bleeding, unspecified
CPT/HCPCS: 76830; 76856

== ENCOUNTER → 2024-12-08 | Outpatient (CLI) | payer MEDICARE, OTHER, SELFPAY ==
--- NOTE | 2024-12-08 10:49 | DI.US.S_ITS ---
US breast LT limited: 12/08/2024. BI-RADS: 3 CLINICAL: 69-year old female for left diagnostic breast ultrasound. The patient presents for short interval follow-up. Tyrer-Cuzick lifetime risk of 4.4%. No personal or first-degree family history of breast cancer. History of ovarian cancer in one first-degree relative. The patient had a prior left breast biopsy. PRIOR EXAMS 07/29/2024, 06/09/2024, 05/20/2024, 07/26/2023, 07/25/2022, 07/20/2021, 07/13/2020, 07/09/2019, 07/03/2018, 06/22/2017, 06/09/2016, 05/31/2016, 05/26/2015. ULTRASOUND TECHNIQUE Real-time moore scale and color doppler imaging of the area of clinical interest was performed with image documentation. TARGETED Left Breast Ultrasound: Real-time ultrasound exam was performed focused to area of clinical and/or imaging concern. ULTRASOUND FINDINGS Left: Upper Inner at 11:00, 5 cm from nipple, measuring 0.9 x 0.4 x 0.7 cm, previously measuring 1 x 0.4 x 0.7 cm: There is an oval, circumscribed cyst vs solid mass present. This was previously noted on prior ultrasound as 11:00, 5.5 cm from the nipple (and corresponds to a mass seen on MRI at 12:00). IMPRESSION: Left (CvS): Upper Inner at 11:00, 5 cm from nipple, measuring 0.9 x 0.4 x 0.7 cm, previously measuring 1 x 0.4 x 0.7 cm * Probably Benign. RECOMMENDATIONS Left: Upper Inner at 11:00, 5 cm from nipple * Six month followup with diagnostic ultrasound. COMMENTS: Findings and recommendations were conveyed to the patient during today's evaluation. OVERALL ASSESSMENT CATEGORY BI-RADS-3: Probably Benign. PRELIMINARILY ELECTRONICALLY SIGNED: Mariann Jc M.D. on 12/23/2024 at 11:28:42 AM PT ELECTRONICALLY SIGNED: Mariann Jc M.D. on 12/24/2024 at 02:40:30 PM PT Interpreting Station ID: [id number]
== END ==
PROVIDERS: PCP Physician Assistant; Referring Provider Physician Assistant; Visit Provider Physician Assistant
DX: R92.8 Other abnormal and inconclusive findings on diagnostic imaging of breast (principal); N63.22 Unspecified lump in the left breast, upper inner quadrant; Z80.41 Family history of malignant neoplasm of ovary
CPT/HCPCS: 76642

== ENCOUNTER → 2025-01-30 07:25 | Outpatient (CLI) | payer MEDICARE, OTHER, SELFPAY | PROVIDERS: PCP Physician Assistant; Visit Provider Chiropractor | DX: R35.0 Frequency of micturition (principal) | CPT/HCPCS: 87086; 99214 ==

== ENCOUNTER → 2025-06-24 08:46 | Outpatient (CLI) | payer MEDICARE, OTHER, SELFPAY ==
--- NOTE | 2025-06-24 08:48 | DI.MG.S_ITS ---
MM diagnostic mammo BI, US breast LT limited: 06/24/2025 BI-RADS: 3 CLINICAL: 70-year old female for bilateral diagnostic mammogram and left diagnostic breast ultrasound that is a follow-up to diagnostic breast ultrasound on 12/08/2024. Tyrer-Cuzick lifetime risk of 6.5%. No personal or first-degree family history of breast cancer. History of ovarian cancer in one first-degree relative. The patient had a prior left breast biopsy. PRIOR EXAMS 07/29/2024, 05/20/2024, 07/26/2023, 07/25/2022, 07/20/2021. MAMMOGRAPHY TECHNIQUE: 2D and 3D (tomosynthesis) digital mammographic views obtained, with additional images as needed for full coverage. Current study was also evaluated with a Computer Aided Detection (CAD) system. ULTRASOUND TECHNIQUE: Real-time moore scale and color doppler imaging of the area of clinical interest was performed with image documentation. Left targeted breast ultrasound of the area of clinical interest and the axilla was performed with image documentation. DENSITY D. The breasts are extremely dense, which lowers the sensitivity of mammography. MAMMOGRAPHY FINDINGS Bilateral: Benign-appearing calcifications noted. There are no suspicious masses, calcifications, or other findings in the breast. ULTRASOUND FINDINGS Left: Upper Inner at 11:00, 5 cm from nipple, measuring 0.6 x 0.5 x 1 cm - previously measuring (12/08/2024) 0.7 x 0.4 x 0.9 cm - (06/09/2024) 0.7 x 0.4 x 1 cm: Correlating with prior imaging concern there is an oval, circumscribed, hypoechoic cyst vs solid mass. The lesion is unchanged in size and appearance. Doppler shows no vascularity. Left: Axilla, measuring 1.6 x 0.6 x 1.4 cm: There is a lymph node with concentric cortical thickening. Cortical thickness measures up to 0.5 cm with preservation of the fatty hilum. This could be reactive. IMPRESSION: Right * No evidence of malignancy with benign findings. Left (CvS): Upper Inner at 11:00, 5 cm from nipple, measuring 0.6 x 0.5 x 1 cm - previously measuring (12/08/2024) 0.7 x 0.4 x 0.9 cm - (06/09/2024) 0.7 x 0.4 x 1 cm * Probably Benign. Left (Lymph Node): Axilla, measuring 1.6 x 0.6 x 1.4 cm * Probably Benign. RECOMMENDATIONS Left: Upper Inner at 11:00, 5 cm from nipple * Followup with diagnostic ultrasound in one year to demonstrate 2 year stability. Left: Axilla * Three month followup with diagnostic ultrasound. Bilateral * Annual screening mammography in one year (This will be performed as a diagnostic study at the same time as the patient's left breast ultrasound follow up). COMMENTS: Findings and recommendations were conveyed to the patient during today's evaluation. OVERALL ASSESSMENT CATEGORY BI-RADS-3: Probably Benign. ELECTRONICALLY SIGNED: Mariann Jc M.D. on 06/24/2025 at 12:15:50 PM PT Interpreting Station ID: [id number]
== END ==
LOC: MAMMO 08:47
PROVIDERS: PCP Family Medicine; Referring Provider Physician Assistant; Visit Provider Physician Assistant
DX: R92.8 Other abnormal and inconclusive findings on diagnostic imaging of breast (principal); R59.0 Localized enlarged lymph nodes; R92.30 Dense breasts, unspecified; R92.1 Mammographic calcification found on diagnostic imaging of breast; Z80.41 Family history of malignant neoplasm of ovary
CPT/HCPCS: 76642; 77066; G0279

== ENCOUNTER → 2025-07-25 07:59 | Outpatient (CLI) | payer MEDICARE, OTHER, SELFPAY | PROVIDERS: PCP Family Medicine; Visit Provider Registered Nurse | DX: R30.0 Dysuria (principal) | CPT/HCPCS: 87086 ==

== ENCOUNTER → 2025-07-31 10:03 | Outpatient (CLI) | payer MEDICARE, OTHER, SELFPAY ==
[2025-07-31 10:30] LABS: Appearance Urine UA CLEAR; Bilirubin Urine UA NEGATIVE (NEGATIVE); Color Urine UA YELLOW; Glucose Urine UA NEGATIVE (Negative); Ketones Urine UA NEGATIVE (NEGATIVE); Leukocyte Esterase Urine UA TRACE (NEGATIVE); Nitrite Urine UA NEGATIVE (Negative); Occult Blood Urine UA 1+ (Negative); Protein Urine UA NEGATIVE (Negative); Specific Gravity Urine UA <=1.005 (1.000-1.035); Urobilinogen Urine UA 0.2 E.U./dL (0.2)
[2025-07-31 10:39] LABS: pH Urine UA 6.0 (4.5-8.0)
[2025-07-31 10:40] LABS: Culture Indicated Urine Cult Not Indicated
== END ==
PROVIDERS: PCP Family Medicine; Referring Provider Family Medicine; Visit Provider Family Medicine
DX: R31.9 Hematuria, unspecified (principal); R35.0 Frequency of micturition; R30.0 Dysuria
CPT/HCPCS: 81001; 87086

== ENCOUNTER → 2025-08-12 07:58 | Outpatient (CLI) | payer MEDICARE, OTHER, SELFPAY ==
--- NOTE | 2025-08-12 08:00 | DI.CT.S_ITS ---
PROCEDURE: CT IVP A/P W/WO INDICATIONS: hematuria, recurrent TECHNIQUE: Optional 5 mm thick noncontrast images acquired from the diaphragm to the symphysis pubis. After the administration of intravenous contrast, 5 mm thick images acquired from the diaphragm to the symphysis pubis after a 10-minute delay. 2 mm thick coronal and sagittal reformats were then performed of the kidneys and ureters. For radiation dose reduction, the following was used: automated exposure control, adjustment of mA and/or kV according to patient size. COMPARISON: None. FINDINGS: Image quality: Diagnostic. Kidneys and Ureters: Both kidneys are normal in size, without hydronephrosis or nephrolithiasis. No perinephric fat stranding. There is normal bilateral renal enhancement. Renal calyces appear normal in morphology when filled with contrast. Opacified portions of both ureters demonstrate normal caliber. Non complex small renal cysts. Bladder: Bladder wall thickness is normal. No calcified bladder stones. OTHER: Lower chest: Unremarkable. Liver: 1.8 centimeter lesion with indeterminate attenuation at the liver dome on the left (series 4, image 17). Hepatic cyst in segment 4 of the liver. Gallbladder: No radiopaque gallstones or wall thickening. Biliary ducts: No biliary dilation. Pancreas: No ductal dilation. Spleen: Size is within normal limits. Adrenal Glands: No adrenal nodules. Stomach and Bowel: Normal colonic caliber, without significant wall thickening. Colonic diverticulosis without evidence of diverticulitis. Peritoneum: No abnormal intraperitoneal fluid. No free air. Ventral Wall: No hernia. Abdominal Nodes: No retroperitoneal or mesenteric adenopathy by size criteria. Vessels: Aorta and inferior vena cava are normal in size. PELVIS: Pelvic Organs: Unremarkable. Pelvic Nodes: No enlarged lymph nodes. Miscellaneous: No inguinal hernias are seen. Bones: No aggressive osseous abnormality. IMPRESSION: No nephrolithiasis or filling defects within the opacified renal collecting system or ureters. Colonic diverticulosis without evidence of diverticulitis. 1.7 centimeter lesion with indeterminate attenuation at the liver dome. Recommend right upper quadrant ultrasound to exclude a solid lesion. Dictated by: Derrek Wall M.D. on 08/12/2025 at 11:32 Approved by: Derrek Wall M.D. on 08/12/2025 at 11:42
[2025-08-12 08:25] LABS: Estimated Glomerular Filt Rate > 60 mL/min (>60)
== END ==
LOC: CT 08:00
PROVIDERS: PCP Family Medicine; Referring Provider Family Medicine; Visit Provider Family Medicine
DX: R31.9 Hematuria, unspecified (principal); K76.89 Other specified diseases of liver; K57.30 Diverticulosis of large intestine without perforation or abscess without bleeding
CPT/HCPCS: 36415; 74178; 82565; Q9967

== ENCOUNTER → 2025-09-02 06:43 | Outpatient (CLI) | payer MEDICARE, OTHER, SELFPAY ==
--- NOTE | 2025-09-02 06:44 | DI.US.S_ITS ---
PROCEDURE: US ABDOMEN LIMITED INDICATIONS: LIVER LESION ON CT TECHNIQUE: Real-time scanning was performed of the abdominal and retroperitoneal organs, with image documentation. COMPARISON: None. FINDINGS: Liver: Liver is normal in size and homogeneous in echotexture. Hepatic cyst in segment 4 measuring 1 centimeter. No liver lesions seen at the dome, corresponding to the comparison CT. Gallbladder: No gallstones. No wall thickening. No pericholecystic edema. Negative sonographic Kaplan's sign. Biliary ducts: Intrahepatic bile ducts are non-dilated. Extrahepatic bile duct caliber measures 1.5 mm. Normal is 6-7 mm or less in diameter, or 10 mm or less post-cholecystectomy. Pancreas: Visualized portions of the pancreas are sonographically normal. Miscellaneous: No free abdominal fluid. There is a 7 millimeter short axis peripancreatic lymph node posterior to the splenic vein, without suspicious properties on comparison CT. IMPRESSION: No corresponding lesion seen at the liver dome. Further characterization with CT or MRI would be indicated (hepatic mass protocol). Dictated by: Derrek Wall M.D. on 09/02/2025 at 13:26 Approved by: Derrek Wall M.D. on 09/02/2025 at 13:29
== END ==
LOC: US 06:44
PROVIDERS: PCP Family Medicine; Referring Provider Family Medicine; Visit Provider Family Medicine
DX: K76.89 Other specified diseases of liver (principal)
CPT/HCPCS: 76705

== ENCOUNTER → 2025-09-13 13:11 | Outpatient (CLI) | payer MEDICARE, OTHER, SELFPAY ==
--- NOTE | 2025-09-13 13:13 | DI.MRI.S_ITS ---
PROCEDURE: MR ABDOMEN LIVER PROTOCOL INDICATIONS: 1.8 cm liver lesion with indeterminate attenuation TECHNIQUE: Coronal HASTE, axial 2D FLASH in- and [id number]; axial breath-hold T2 FSE. Dynamic axial VIBE during the administration of contrast; post-contrast coronal VIBE or 2D FLASH with fat saturation from the hepatic dome to the iliac crests. Optional diffusion weighted imaging and ADC may be performed. COMPARISON: [facility], CT, CT IVP A/P W/WO, 08/12/2025, 8:26. FINDINGS: Image quality: Diagnostic Lower chest: Unremarkable Liver: Unremarkable contour. A segment 4 cyst is present measuring 1 cm, as seen on CT. At the left lobe liver dome between the middle and left hepatic veins, there is also a 1.9 cm cyst with mildly complicated contents. No enhancement is seen. This area does not retain hepatobiliary phase contrast. Other smaller cysts are also present. A possible hemangioma is also seen in the subcapsular region of segment 5 (/). Gallbladder and biliary system: Unremarkable, nondilated Pancreas: No ductal dilation Spleen: Nonenlarged Adrenals: No discrete nodules Kidneys: Multiple renal cysts are present. No hydronephrosis. No enhancing mass is identified. At the right lower pole, cluster of cysts is present, 1 of which shows an enhancing minimally thickened septation measuring 2-3 mm (18/44). The entire cysts cluster measures about 2.6 x 2 cm. (3/17). Bosniak 2 F. Vessels and lymph nodes: Main portal vein is patent. No abdominal aortic aneurysm. There are no enlarged lymph nodes by size criteria. Bowel and peritoneum: No bowel obstruction. No drainable abscess or ascites. Body wall: Unremarkable Bones: No aggressive appearing osseous abnormality. IMPRESSION: Hepatic cysts are seen in segment 4 and the dome of the left lobe. The lesion between the middle and left hepatic veins described on CT is mildly complicated, but without internal enhancement identified on MRI. Other smaller cysts also present. Right lower renal pole cluster of cysts, 1 of which has a mildly thickened wall/septation measuring up to 3 mm. Bosniak 2 F. Six-month follow-up renal protocol MRI suggested. No enhancing soft tissue nodule. In hepatic segment 5 subcapsular region, there is a possible tiny hemangioma (/). This is difficult to characterize due to small size. Attention on follow-up MRI. Other findings above. Dictated by: Fritz Jasso M.D. on 09/13/2025 at 14:23 Approved by: Fritz Jasso M.D. on 09/13/2025 at 14:37
== END ==
LOC: MRI 13:12
PROVIDERS: PCP Family Medicine; Referring Provider Family Medicine; Visit Provider Family Medicine
DX: K76.89 Other specified diseases of liver (principal); R93.5 Abnormal findings on diagnostic imaging of other abdominal regions, including retroperitoneum; N28.1 Cyst of kidney, acquired
CPT/HCPCS: 74183; A9579